=== PATIENT | female | born 1995 | race Caucasian/White ===

== ENCOUNTER 2016-11-08 23:04 | Emergency (ER) | payer OTHER ==
[2016-11-08 23:34] LABS: BILIRUBIN,URINE NEGATIVE (NEGATIVE)
[2016-11-08 23:35] LABS: HCG UR QUAL NEGATIVE; UA w/ MICROSCOPIC CHARGE YES
[2016-11-08 23:41] LABS: UR CULTURE IF IND NOT INDICATED
--- NOTE | 2016-11-09 00:50 | ED Physician Documentation ---
PD HPI FEMALE - Stated complaint Stated Complaint: LT FLANK PAIN,NAUSEA - Chief complaint Chief Complaint: Abd Pain - History obtained from History obtained from: Patient - History of Present Illness Timing - onset: How many weeks ago (1-2) Timing - duration: Weeks Timing - details: Gradual onset, Waxing and waning Pain level max: 4 Associated symptoms: Back pain. No: Fever, Dysuria, Urinary frequency Similar symptoms before: Diagnosis (similar to previous kidney infection) Recently seen: Not recently seen - Additional information Additional information: c/o 1-2 weeks of left flank pain, initially bilateral flank pain but now just left flank. She feels this is similar to a previous episode of kidney infection Review of Systems Constitutional: denies: Fever, Chills, Sweats Cardiac: reports: Reviewed and negative Respiratory: reports: Reviewed and negative GI: reports: Abdominal Pain (left flank). denies: Vomiting, Diarrhea : reports: Frequency. denies: Dysuria Musculoskeletal: reports: Back pain PD PAST MEDICAL HISTORY - Past Medical History Past Medical History: Yes : Other (pyelonephritis) - Past Surgical History Past Surgical History: Yes HEENT: Tonsil/Adenoidectomy - Present Medications Home Medications: Ambulatory Orders Medication Instructions Recorded Confirmed Ciprofloxacin HCl [Cipro] 500 mg PO BID #13 tablet 11/09/16 - Allergies Allergies/Adverse Reactions: Allergies Allergy/AdvReac Type Severity Reaction Status Date / Time No Known Drug Allergies Allergy Verified 01/25/16 10:06 - Social History Does the pt smoke?: No Smoking Status: Never smoker PD ED PE NORMAL - Vitals Vital signs reviewed: Yes - General General: Alert and oriented X 3, No acute distress, Well developed/nourished - Cardiac Cardiac: RRR, No murmur - Respiratory Respiratory: No respiratory distress, Clear bilaterally - Abdomen Abdomen: Soft, Non tender PD ED PE EXPANDED - Back Back: CVA TTP left. No: CVA TTP right Results - Vitals Vitals: Oxygen O2 Source Room air - Labs Labs: Laboratory Tests 11/08/16 23:20 Urine Color YELLOW Urine Clarity CLEAR Urine pH 6.0 Ur Specific [place] 1.010 Urine Protein NEGATIVE Urine Glucose (UA) NEGATIVE Urine Ketones NEGATIVE Urine Occult Blood NEGATIVE Urine Nitrite NEGATIVE Urine Bilirubin NEGATIVE Urine Urobilinogen 0.2 (NORMAL) Ur Leukocyte Esterase MODERATE H Urine RBC 6-10 H Urine WBC 11-25 H Ur Squamous Epith Cells MOD Squamous H Urine Bacteria Few Ur Microscopic Review INDICATED Urine Culture Comments NOT INDICATED Urine HCG, Qual NEGATIVE PD MEDICAL DECISION MAKING - ED course Complexity details: considered differential, d/w patient Departure - Departure Disposition: 01 Home, Self Care Clinical Impression: Pyelonephritis Condition: Good Instructions: ED Kidney Infec Female Follow-Up: Gloria Ramirez ARNP [Primary Care Provider] - Prescriptions: Ciprofloxacin HCl [Cipro] 500 mg PO BID #13 tablet Comments: Your urinalysis results tonight suggest an infection in your urinary tract, and given your symptoms, I suspect you have a mild kidney infection. Other possible diagnoses, based on the recurrent nature of your symptoms, would include interstitial cystitis and endometriosis; these diagnoses would require follow- up with a specialist and further testing if necessary. Discharge Date/Time: 11/09/16 01:16
[2016-11-09] MEDS ORDERED: CIPROFLOXACIN 250 MG TABLET PO STA (01:03)
[2016-11-09] MEDS ORDERED: CIPROFLOXACIN 250 MG TABLET PO ONE (01:11)
[2016-11-09 01:12] VITALS: BP 118/74
== END 2016-11-09 01:16 | disposition home or self-care (01) ==
LOC: ED 23:04
DX: N12 Tubulo-interstitial nephritis, not specified as acute or chronic (principal)
CPT/HCPCS: 81001; 81025; 99283; A9270; 81003; 87086

== ENCOUNTER 2017-01-14 14:30 | Emergency (ER) | payer OTHER ==
[2017-01-14 14:37] VITALS: BP 125/77
--- NOTE | 2017-01-14 14:46 | ED Physician Documentation ---
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 has taken Valacyclovir the last time. She staes that she started to feel tingling 3 days go and now was 2 lesions, pt states that she went to the [facility] pharmacy and was told that they do not fill new rx on weekends.) Review of Systems Constitutional: denies: Fever, Chills Throat: denies: Oral lesions / sores, Sore throat Cardiac: denies: Chest pain / pressure, Palpitations Respiratory: denies: Dyspnea, Cough : reports: Other (gential lesions). denies: Dysuria, Discharge, Vaginal bleeding Skin: reports: Lesions (genital) Musculoskeletal: denies: Back pain Neurologic: denies: Generalized weakness PD PAST MEDICAL HISTORY - Past Medical History : Other - Past Surgical History Past Surgical History: Yes HEENT: Tonsil/Adenoidectomy - Present Medications Home Medications: Ambulatory Orders Medication Instructions Recorded Confirmed Valacyclovir HCl [Valacyclovir] 500 mg PO BID #6 tablet 01/14/17 - Allergies Allergies/Adverse Reactions: Allergies Allergy/AdvReac Type Severity Reaction Status Date / Time No Known Drug Allergies Allergy Verified 01/25/16 10:06 - Social History Does the pt smoke?: No Smoking Status: Never smoker PD ED PE NORMAL - Vitals Vital signs reviewed: Yes - General General: Alert and oriented X 3 - Cardiac Cardiac: RRR - Respiratory Respiratory: No respiratory distress - Abdomen Abdomen: Non tender, Non distended - Neuro Neuro: Alert and oriented X 3 - Psych Psych: Normal mood, Normal affect Results - Vitals Vitals: Vital Signs - 24 hr 01/14/17 14:34 Temperature 36.5 C Heart Rate 83 Respiratory 17 Rate Blood Pressure 125/77 O2 Saturation 99 Oxygen O2 Source Room air PD MEDICAL DECISION MAKING - ED course Complexity details: d/w patient ED course: pt is 6 weeks EGA with recurrent outbreak of HSV. was unable to get a rx filled at the [facility]. states that she has been on Valacyclovir in the past and it helped. no related issues today. She was instructed to call her OB to discuss further treatment. 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 Herpes in needs to be managed closely by your OB provider to prevent complications. Start the medications as today.
== END 2017-01-14 14:59 | disposition home or self-care (01) ==
LOC: ED 14:30
DX: O98.311 Other infections with a predominantly sexual mode of transmission complicating pregnancy, first trimester (principal); A60.04 Herpesviral vulvovaginitis; Z3A.01 Less than 8 weeks gestation of pregnancy
CPT/HCPCS: 99283

== ENCOUNTER 2017-06-13 16:41 | Emergency (ER) | payer OTHER ==
[2017-06-13 16:47] VITALS: BP 132/75
--- NOTE | 2017-06-13 17:15 | ED Physician Documentation ---
PD HPI GI BLEED - Stated complaint Stated Complaint: FEMALE /28 WKS - Chief complaint Chief Complaint: Abd Pain - History obtained from History obtained from: Patient - History of Present Illness Timing - onset: Other (G1 at 28 weeks with rectal bleeding that is relatively painless except for when she has a bowel movement for the last 7 days which has been heavy for the last 3 days. She has been constipated.) Review of Systems Constitutional: denies: Fever, Chills GI: denies: Abdominal Pain, Nausea, Vomiting : denies: Dysuria, Frequency PD PAST MEDICAL HISTORY - Past Medical History Past Medical History: Yes : Other - Past Surgical History Past Surgical History: Yes HEENT: Tonsil/Adenoidectomy - Present Medications Home Medications: Ambulatory Orders Medication Instructions Recorded Confirmed Valacyclovir HCl [Valacyclovir] 500 mg PO BID #6 tablet 01/14/17 Docusate Sodium 250Mg Capsule 250 mg PO DAILY #30 capsule 06/13/17 [Colace 250Mg Capsule] Escitalopram [Lexapro] 10 mg PO DAILY 06/13/17 Polyethylene Glycol 3350 [Miralax] 17 gm PO DAILY PRN #1 bottle 06/13/17 - Allergies Allergies/Adverse Reactions: Allergies Allergy/AdvReac Type Severity Reaction Status Date / Time No Known Drug Allergies Allergy Verified 06/13/17 16:47 - Social History Does the pt smoke?: No Smoking Status: Never smoker Does the pt drink ETOH?: No Does the pt have substance abuse?: No - Immunizations Immunizations are current?: Yes PD ED PE NORMAL - Vitals Vital signs reviewed: Yes - General General: Alert and oriented X 3, No acute distress - Abdomen Abdomen: Normal bowel sounds, Soft, Non tender - Female Female : Other (Bedside ultrasound shows single live intrauterine with heart rate of 146. External rectal exam was done with [employer] tech, no external hemorrhoids or active bleeding.) - Neuro Neuro: Alert and oriented X 3, Normal speech Results - Vitals Vitals: Vital Signs - 24 hr 06/13/17 16:43 Temperature 36.6 C Heart Rate 72 Respiratory 16 Rate Blood Pressure 132/75 H O2 Saturation 99 Oxygen O2 Source Room air - Labs Labs: Laboratory Tests 06/13/17 17:25 WBC 11.4 H RBC 4.37 Hgb 12.5 Hct 36.4 L MCV 83.2 MCH 28.7 MCHC 34.5 RDW 12.9 Plt Count 244 MPV 8.3 Neut # 8.1 H Lymph # 2.3 Braxton # 0.8 Eos # 0.1 Baso # 0.0 Absolute Nucleated RBC 0.00 Nucleated RBC % 0.0 Departure - Departure Disposition: 01 Home, Self Care Clinical Impression: Hematochezia Condition: Good Record reviewed to determine appropriate education?: Yes Instructions: ED Hematochezia Stable Prescriptions: Docusate Sodium 250Mg Capsule [Colace 250Mg Capsule] 250 mg PO DAILY #30 capsule Polyethylene Glycol 3350 [Miralax] 17 gm PO DAILY PRN #1 bottle PRN Reason: Constipation Comments: Your blood counts are normal with a hemoglobin of 12.5. This suggests a non- dangerous source of the bleeding. If it is persistent follow-up with your doctor and return if worse. Drink plenty of fluids, try to get your stools soft , that should stop the problem.
[2017-06-13 17:35] LABS: BASOPHILS % (AUTO) 0.4 %; EOSINOPHILS # (AUTO) 0.1 10^3/uL (0.0-0.7); EOSINOPHILS % (AUTO) 0.8 %; HGB - HEMOGLOBIN 12.5 g/dL (12.0-16.0); LYMPHOCYTES # (AUTO) 2.3 10^3/uL (1.5-3.5); LYMPHOCYTES % (AUTO) 20.3 %; MEAN CORPUSCULAR HEMOGLOBIN 28.7 pg (27.0-31.0); MEAN CORPUSCULAR HGB CONC 34.5 g/dL (32.0-36.0); MEAN CORPUSCULAR VOLUME 83.2 fL (81.0-99.0); MEAN PLATELET VOLUME 8.3 fL (7.9-10.8); MONOCYTES # (AUTO) 0.8 10^3/uL (0.0-1.0); NEUTROPHILS # (AUTO) 8.1 10^3/uL (1.5-6.6); NEUTROPHILS % (AUTO) 71.5 %; PLT - PLATELET COUNT 244 10^3/uL (130-450); RED BLOOD COUNT 4.37 10^6/uL (4.20-5.40); RED CELL DISTRIBUTION WIDTH 12.9 % (12.0-15.0); WHITE BLOOD COUNT 11.4 x10^3/uL (4.8-10.8)
== END 2017-06-13 18:02 | disposition home or self-care (01) ==
LOC: ED 16:41
DX: O26.893 Other specified pregnancy related conditions, third trimester (principal); K92.1 Melena; Z3A.28 28 weeks gestation of pregnancy
CPT/HCPCS: 36415; 85025; 99283

== ENCOUNTER 2019-05-17 10:21 | Emergency (ER) | payer OTHER ==
[2019-05-17 10:27] VITALS: BP 132/74
--- NOTE | 2019-05-17 11:00 | ED Physician Documentation ---
History of Present Illness - Stated complaint Stated Complaint: BILATERAL SIDE PX - Chief complaint Chief Complaint: Abd Pain - History obtained from History obtained from: Patient - History of Present Illness Timing: Last night Pain level max: 7 Pain level now: 5 - Additonal information Additional information: 23-year-old female presents to the emergency department Stating that she is 10 weeks . She has had dysuria for the past week. She states she now is having back pain. She has had pyelonephritis in the past and is concerned about this recurring. She states she had a fever last night and vomiting today. No abdominal pain. No vaginal bleeding or discharge. 2 para 1 Review of Systems Ten Systems: 10 systems reviewed and negative Constitutional: reports: Chills Nose: denies: Rhinorrhea / runny nose, Congestion Throat: denies: Sore throat Respiratory: denies: Cough GI: denies: Abdominal Pain, Vomiting, Diarrhea Skin: denies: Rash Musculoskeletal: denies: Neck pain Neurologic: denies: Headache PD PAST MEDICAL HISTORY - Past Medical History Past Medical History: Yes : Other - Past Surgical History Past Surgical History: Yes HEENT: Tonsil/Adenoidectomy - Present Medications Home Medications: Ambulatory Orders Medication Instructions Recorded Confirmed Valacyclovir HCl [Valacyclovir] 500 mg PO BID #6 tablet 01/14/17 Docusate Sodium 250Mg Capsule 250 mg PO DAILY #30 capsule 06/13/17 [Colace 250Mg Capsule] Escitalopram [Lexapro] 10 mg PO DAILY 06/13/17 Polyethylene Glycol 3350 [Miralax] 17 gm PO DAILY PRN #1 bottle 06/13/17 Cefdinir 300 mg PO BID #20 capsule 05/17/19 - Allergies Allergies/Adverse Reactions: Allergies Allergy/AdvReac Type Severity Reaction Status Date / Time No Known Drug Allergies Allergy Verified 05/17/19 10:26 - Social History Does the pt smoke?: No Smoking Status: Never smoker Does the pt drink ETOH?: No Does the pt have substance abuse?: No - Immunizations Immunizations are current?: Yes PD ED PE NORMAL - Vitals Vital signs reviewed: Yes - General General: Alert and oriented X 3, No acute distress - HEENT HEENT: Moist mucous membranes - Neck Neck: Supple, no meningeal sign - Cardiac Cardiac: RRR - Respiratory Respiratory: No respiratory distress, Clear bilaterally - Abdomen Abdomen: Soft, Non tender, Non distended - Back Back: No spinal TTP, Other (Mild bilateral CVA tenderness) - Derm Derm: Warm and dry, No rash - Extremities Extremities: No edema - Neuro Neuro: Alert and oriented X 3 - Psych Psych: Normal mood, Normal affect Results - Vitals Vitals: Vital Signs - 24 hr 05/17/19 10:24 Temperature 36.1 C L Heart Rate 107 H Respiratory 16 Rate Blood Pressure 132/74 H O2 Saturation 98 Oxygen O2 Source Room air - Labs Labs: Laboratory Tests 05/17/19 10:35 Urine Color YELLOW Urine Clarity CLEAR Urine pH 6.0 Ur Specific [place] 1.025 Urine Protein NEGATIVE Urine Glucose (UA) NEGATIVE Urine Ketones NEGATIVE Urine Occult Blood NEGATIVE Urine Nitrite NEGATIVE Urine Bilirubin NEGATIVE Urine Urobilinogen 0.2 (NORMAL) Ur Leukocyte Esterase NEGATIVE Ur Microscopic Review NOT INDICATED Urine Culture Comments NOT INDICATED PD MEDICAL DECISION MAKING - ED course Complexity details: reviewed results, considered differential, d/w patient ED course: 23-year-old female with symptoms concerning for pyelonephritis. She states that last time she had pyelonephritis, her urinalysis was negative. She did have a positive urine culture that returned upon arrival to the emergency department from urinalysis 2 days ago as well. This is positive for group B strep. We will place her on cefdinir for home. She is well-appearing, nontoxic. Afebrile. No hypoxia. Bedside ultrasound reveals an intrauterine with a heart rate of 156 bpm and good movement. Images were shown to the patient. Patient counseled regarding signs and symptoms for which I believe and urgent re-evaluation would be necessary. Patient with good understanding of and agreement to plan and is comfortable going home at this time This document was made in part using voice recognition software. While efforts are made to proofread this document, sound alike and grammatical errors may occur. Departure - Departure Disposition: 01 Home, Self Care Clinical Impression: Pyelonephritis Condition: Good Instructions: ED Kidney Infec Female Follow-Up: your,doctor in 1 week [Other] Prescriptions: Cefdinir 300 mg PO BID #20 capsule Comments: Take all antibiotics until gone. Return if you worsen. Drink plenty of fluids and rest.
[2019-05-17 11:01] LABS: BILIRUBIN,URINE NEGATIVE (NEGATIVE); GLUCOSE, URINE (UA) NEGATIVE (NEGATIVE); KETONES,URINE (UA) NEGATIVE (NEGATIVE); LEUKOCYTE ESTERASE, URINE NEGATIVE (NEGATIVE); NITRITE,URINE NEGATIVE (NEGATIVE); OCCULT BLOOD,URINE NEGATIVE (NEGATIVE); PROTEIN,URINE NEGATIVE (NEGATIVE); UROBILINOGEN,URINE 0.2 (NORMAL) E.U./dL (NORMAL)
[2019-05-17] MEDS ORDERED: cefTRIAXone 1 GM VIAL IM STA (11:01)
[2019-05-17] MEDS ORDERED: LIDOCAINE 1% 2 ML VIAL MC ONE (11:01)
[2019-05-17 11:04] LABS: CLARITY,URINE CLEAR (CLEAR)
== END 2019-05-17 11:33 | disposition home or self-care (01) ==
LOC: ED 10:21
DX: O23.01 Infections of kidney in pregnancy, first trimester (principal); B95.1 Streptococcus, group B, as the cause of diseases classified elsewhere; Z3A.10 10 weeks gestation of pregnancy
CPT/HCPCS: 81001; 81003; 87086; 96372; 99283; 99284